=== PATIENT | female | born 1965 | race Caucasian/White ===

== ENCOUNTER 2019-10-03 07:00 | Outpatient (CLI) | payer OTHER ==
[2019-10-03 14:55] LABS: Hemoglobin 15.2 g/dL (12.0-16.0); Mean Corpuscular HGB CONC 31.9 g/dL (32.0-36.0); Mean Corpuscular Hemoglobin 31.5 pg (27.0-31.0); Mean Corpuscular Volume 98.8 fL (78.0-98.0); Mean Platelet Volume 7.5 fL (7.4-10.4); Platelet Count 322 thou/uL (130-400); RBC Distribution Width 11.5 % (11.5-14.5); Red Blood Cell (RBC) Count 4.81 mill/uL (4.20-5.40)
[2019-10-03 15:14] LABS: Anion Gap 13 mmol/L (10-20); BUN (Urea Nitrogen) 17 mg/dL (9.8-20.1); Calc. Creatinine Clearance 0 mL/min (70-130); Calcium 9.2 mg/dL (7.8-10.44); Carbon Dioxide 25 mmol/L (22-29); Chloride 101 mmol/L (98-107); Estimated GFR-MDRD 84; Glucose 94 mg/dL (70-105); Potassium 3.7 mmol/L (3.5-5.1); Sodium 135 mmol/L (136-145)
[2019-10-04 11:02] LABS: SARS-CoV-2 MS2 Positive; SARS-CoV-2 N Gene Negative; SARS-CoV-2 S Gene Negative; SARS-CoV-2 orf1ab Negative
== END 2019-10-03 07:01 | disposition home or self-care (01) ==
LOC: LABBT 07:00
PROVIDERS: ATTEND Neurological Surgery
DX: Z01.818 Encounter for other preprocedural examination (principal); Z11.59 Encounter for screening for other viral diseases; M43.16 Spondylolisthesis, lumbar region
CPT/HCPCS: 80048; 85027; 87635; 93005; 93010; U0003

== ENCOUNTER 2019-10-08 07:51 | Day surgery (SDC) | payer OTHER ==
[2019-10-03 12:49] VITALS: BMI 21.2
[2019-10-08] MEDS ORDERED: Albuterol Sulfate 1.25 MG/3 ML NEB ONE (08:41)
[2019-10-08] MEDS ORDERED: Albuterol Sulfate 2.5 mg/3 ml Neb NEB SCH (09:00)
[2019-10-08] MEDS ORDERED: Fentanyl 100 MCG/2 ML VIAL ONE ×4 (09:00→11:45)
[2019-10-08] MEDS ORDERED: Midazolam HCl 2 mg/2 ml Vial ONE (09:08)
[2019-10-08] MEDS ORDERED: HYDROmorphone 2 MG/ML VIAL SLOW IVP PRN (10:41)
[2019-10-08] MEDS ORDERED: Meperidine HCl/PF 25 MG/ML VIAL SLOW IVP PRN (10:41)
[2019-10-08] MEDS ORDERED: Ondansetron HCl/PF 4 MG/2 ML Vial IVP PRN (10:41)
[2019-10-08] MEDS ORDERED: Promethazine HCl 25 MG/ML VIAL SLOW IVP PRN (10:41)
[2019-10-08] MEDS ORDERED: hydrALAZINE 20 MG/ML VIAL ONE (11:28)
[2019-10-08] MEDS ORDERED: HYDROmorphone 0.5 MG/0.5 ML SYRINGE ONE (11:48)
--- NOTE | 2019-10-08 12:18 | OP ---
DATE OF PROCEDURE: 10/08/2019 ASSEMBLER LAY UPS: Rosa Woodard PA-C PROCEDURES PERFORMED: L4-L5 decompressive laminectomy, posterolateral arthrodesis, pedicle screw instrumentation L4-L5, demineralized bone matrix, local morselized autograft. DESCRIPTION OF PROCEDURE: The patient was brought to the operating room and intubated. She was rolled in a prone position on gel-filled chest rolls. An incision was made exposing L4 and L5 and the level was confirmed by x-ray. We performed complete L5 and inferior L4 laminectomy, completely decompressing the neural elements. Next, pedicle screws were placed at L4 and L5 bilaterally using lateral fluoroscopic guidance and the positioning was confirmed by x-ray. A alpesh was secured between the screws, connected by nuts, which were final tightened. The wound was then extensively irrigated and MAC hemostasis was secured. A combination of demineralized bone matrix and local morselized autograft was laid over the lamina on posterolateral surfaces for the purpose of arthrodesis. Vancomycin powder was applied and the wound was then closed in anatomic layers. Job ID: [id number]
[2019-10-08] MEDS ORDERED: Rocuronium Bromide 10 MG/ML (10ML VIAL) ONE (13:02)
[2019-10-08] MEDS ORDERED: Glycopyrrolate 0.2 MG/ML 5 ML SYRINGE ONE (13:02)
[2019-10-08] MEDS ORDERED: PROPOFOL 200 MG/20 ML VIAL ONE (13:02)
[2019-10-08] MEDS ORDERED: Dexamethasone 20 MG/5 ML VIAL ONE (13:02)
[2019-10-08] MEDS ORDERED: Lidocaine 1% PF 5 ML VIAL ONE (13:02)
[2019-10-08] MEDS ORDERED: Ketorolac Tromethamine 30 MG/ML VIAL ONE (13:02)
[2019-10-08] MEDS ORDERED: Ondansetron PF 4 MG/2 ML Vial ONE (13:02)
[2019-10-08] MEDS ORDERED: PHENYLEPHRINE-NS 100 MCG/ML 10 ML SYRINGE ONE (13:02)
[2019-10-08] MEDS ORDERED: HYDROcodone/Acetaminophen 5/325 mg Tablet ONE (13:42)
== END 2019-10-08 15:35 | disposition home or self-care (01) ==
LOC: SDC 07:51
PROVIDERS: ATTEND Neurological Surgery
PROC: 0SG00J1 Fusion of Lumbar Vertebral Joint with Synthetic Substitute, Posterior Approach, Posterior Column, Open Approach (ICD-10-PCS; principal; 2019-10-08)
DX: M43.16 Spondylolisthesis, lumbar region (principal); M48.061 Spinal stenosis, lumbar region without neurogenic claudication; I10 Essential (primary) hypertension; J44.9 Chronic obstructive pulmonary disease, unspecified; F17.200 Nicotine dependence, unspecified, uncomplicated; F32.9 Major depressive disorder, single episode, unspecified; Z79.899 Other long term (current) drug therapy
CPT/HCPCS: 76000; C1768; J0360; J0690; J1100; J1170; J1885; J2001; J2250; J2405; J2704; J3010; J3370

== ENCOUNTER 2019-10-29 10:14 | Outpatient (CLI) | payer OTHER ==
--- NOTE | 2019-10-29 10:35 | RAD ---
EXAM: XR Lumbar Spine 2 Or 3 View PROVIDED CLINICAL HISTORY: Spondylolisthesis of lumbar region. Follow-up back surgery. COMPARISON: None FINDINGS: There are 5 nonrib-bearing lumbar-type vertebral bodies. There is mild left convex rotoscoliosis lumb ar spine. Postoperative changes related to posterior fusion are present at the L4-5 level with bipedicular screws and interlocking rods transfixing this level. Laminectomy defect is present at thi s level. Grade 1 anterolisthesis of L4 on L5 is present. Loss of intervertebral disc space height is present at the L5-S1 level with vacuum phenomenon and endplate degenerative changes present. Verte bral body heights are within normal limits. No fracture or additional level of subluxation is seen. Phleboliths overlie the pelvis. IMPRESSION: 1. Postoperative and degenerative changes of the lumbar spine. Grade 1 anterolisthesis of L4 on L5 is present. 2. Left convex scoliosis lumbar spine.
== END 2019-10-29 10:15 | disposition home or self-care (01) ==
LOC: TBSIIMAG 10:14
PROVIDERS: ATTEND Neurological Surgery
DX: M43.16 Spondylolisthesis, lumbar region (principal); M47.816 Spondylosis without myelopathy or radiculopathy, lumbar region; M41.86 Other forms of scoliosis, lumbar region
CPT/HCPCS: 72100

== ENCOUNTER 2019-12-05 12:23 | Outpatient (CLI) | payer OTHER ==
--- NOTE | 2019-12-05 13:32 | RAD ---
LUMBAR SPINE: 12/05/19 Two views. HISTORY: Spondylolisthesis. COMPARISON: 10/29/19. AP views show slight curvature of the lumbar spine to the left which is stable. Pedicle screws and ro ds are again noted at L4-5. Slight anterolisthesis of L4-5 with loss of disc space again noted. This is unchanged in appearance. Disc narrowing and degenerative changes at L5-S1 also appears stable. IMPRESSION: Stable lumbar spine findings when compared to 10/29/19. POS: AGW
== END 2019-12-05 12:24 | disposition home or self-care (01) ==
LOC: TBSIIMAG 12:23
PROVIDERS: ATTEND Neurological Surgery
DX: M43.16 Spondylolisthesis, lumbar region (principal)
CPT/HCPCS: 72100

== ENCOUNTER 2022-07-14 11:52 | Outpatient (CLI) | payer OTHER | END 2022-07-14 11:53 | disposition home or self-care (01) | LOC: BICRAD 11:52 | PROVIDERS: ATTEND Preventive Medicine Occupational Medicine | DX: J44.9 Chronic obstructive pulmonary disease, unspecified (principal); J96.11 Chronic respiratory failure with hypoxia | CPT/HCPCS: 71046 ==